=== PATIENT | female | born 1960 | race Caucasian/White ===

== ENCOUNTER → 2021-05-17 | Outpatient (CLI) | payer OTHER ==
[~2021-05-17] VITALS: Ht 157.5 cm; Wt 61.2 kg
[~2021-05-17] MED LIST: CANASA1000 MG RECTAL; ESTRADIOL 1 MG T1 M1 PO; FISH OIL 1,0001 EAC9 PO; PROVERA2.5 MG PO; VITAMIN D350 MC3 PO
--- NOTE | 2021-05-19 10:40 | P ---
[facility] [place] [place] [address] PROCEDURE REPORT Name: MARLON SOLORZANO Room #: REG Jose Keiry#: [id number] Admission: 05/17/21 Attend Phys: Mic Chaparro Discharge: Date of : 62 Report #: [id number] THIS REPORT FOR: cc: KECIA - No family physician/PCP FAM - No family physician/PCP Mic Santos MD ~ cc: Mark Joseph DATE OF SERVICE: 05/17/2021 PROCEDURE PERFORMED: Colonoscopy with biopsies. HISTORY OF PRESENT ILLNESS: The patient is a 60-year-old female with a history of ulcerative colitis diagnosed many years ago. Denies any symptoms. She has not been on any medications other than Canasa suppositories on an every other day basis. Again, denies any bright red blood per rectum, diarrhea, or abdominal pain. Last colonoscopy in [address] Sebastian was essentially normal. Biopsies did show mild chronic active colitis. Plan is for repeat colonoscopy. The patient is also with a family history of colon cancer in her mother. DESCRIPTION OF PROCEDURE: The risks and benefits of the procedure were explained to the patient, those risks including but not limited to bleeding, perforation and the risk of sedation. She understood these risks and gave informed consent. Sedation was given using propofol per anesthesia. Next, a digital rectal exam was initially performed, which was normal. Next, using a standard Olympus colonoscope, the scope was placed in the patient's anus and advanced under direct vision to the cecum. The overall prep was excellent. The cecum and ileocecal valve were normal in appearance. The ascending, transverse, descending and sigmoid colon were all normal. Random biopsies were obtained in each segment. The rectal mucosa was normal as well. On retroflexion, a single small internal hemorrhoid was noted. No evidence of bleeding. The scope was then withdrawn and the procedure terminated. The patient tolerated the procedure well. IMPRESSION: 1. Small internal hemorrhoids. 2. Otherwise, normal colonoscopy. No obvious colitis noted on exam today. RECOMMENDATIONS: 1. Await biopsy results. 2. Continue current regimen at this time. 3. Repeat colonoscopy in [address] [address] PROCEDURE REPORT Name: MARLON SOLORZANO MARCIO Room #: REG MISBAH Keiry#: [id number] Admission: 05/17/21 Attend Phys: Mic Chaparro Discharge: Date of : 62 Report #: [id number] Thank you for allowing me to participate in her care. <ELECTRONICALLY SIGNED> By: Mic Santos MD 05/19/21 1040 [id number] Mic Santos MD /nt
--- NOTE | 2021-05-19 17:07 | PATH ---
[facility] [place] [address] PATHOLOGY RPT PROCEDURE Name: MARLON ESCALERA Room #: REG [facility]..#: [id number] Admission: 05/17/21 Date of : 62 Discharge: Report #: [id number] Path Case #: [id number] [facility] Accession Number: [id number] . 01 Material submitted: . PART A: colon - ASCENDING COLON BIOPSY. Modifiers: ascending PART B: colon - TRANSVERSE COLON BIOPSY. Modifiers: transverse PART C: colon - DESCENDING COLON BIOPSY. Modifiers: descending PART D: sigmoid colon - SIGMOID COLON BIOPSY PART E: rectum - RECTAL BIOPSY . 01 Clinical history: . COLONOSCOPY ULCERATIVE COLITIS . 01 Diagnosis: A. Colonic mucosa "ascending colon biopsy": - No diagnostic features. - There is no evidence of acute cryptitis, granulomas, adenomatous change, or malignancy. . B. Colonic mucosa "transverse colon biopsy": - No diagnostic changes. - There is no evidence of acute cryptitis, granulomas, adenomatous change, or malignancy. . C. Colonic mucosa "descending colon biopsy": - No diagnostic changes. - There is no evidence of acute cryptitis, granulomas, adenomatous change, or malignancy. . D. Colonic mucosa "sigmoid colon biopsy": - No diagnostic changes. - There is no evidence of acute cryptitis, granulomas, adenomatous change, or malignancy. . E. Colonic mucosa "rectal colon biopsy": - No diagnostic changes. - There is no evidence of acute cryptitis, granulomas, adenomatous change, or malignancy. See comment. (SHA:mile; 05/19/2021) S 05/19/2021 1003 Local . 01 Comment: Clinical history of ulcerative colitis noted. ([facility]; 05/19/2021) . [address] [address] PATHOLOGY RPT PROCEDURE Name: MARLON ESCALERA MARCIO Room #: REG [facility] Keiry#: [id number] Admission: 05/17/21 Date of : 62 Discharge: Report #: [id number] Path Case #: [id number] Electronically signed: . Alberto Marsh MD, Pathologist NPI- [id number] . 01 Gross description: . A. The specimen is received in formalin, labeled "Marlon Escalera, ascending colon BX" and consists of multiple verduzco irregular tissue aggregating 0.7 x 0.6 x 0.1 cm which are submitted in toto in A1. . B. The specimen is received in formalin, labeled "Hopper, Marlon, transverse colon BX" and consists of multiple verduzco irregular tissues aggregating 0.8 x 0.5 x 0.2 cm which are submitted in toto in B1. . C. The specimen is received in formalin, labeled "Hopper, Marlon, descending colon BX" and consists of multiple verduzco irregular tissues aggregating 0.6 x 0.5 x 0.2 cm which are submitted in toto in C1. . D. The specimen is received in formalin, labeled "Hopper, Marlon, sigmoid colon BX" and consists of multiple verduzco irregular tissues aggregating 0.7 x 0.6 x 0.2 cm which are submitted in toto in D1. . E. The specimen is received in formalin, labeled "Hopper, Marlon, rectal BX" and consists of multiple verduzco irregular tissues aggregating 0.7 x 0.6 x 0.1 cm which are submitted in toto in E1.([facility]; 05/18/2021) DKA/DKA 05/19/2021 0959 Local . 01 Pathologist provided ICD-10: Z12.11, K51.80 . 01 CPT . 455472, 816389, 659860, 838880, [id number] Specimen Comment: A courtesy copy of this report has been sent to [phone] Specimen Comment: Report sent to Performed at: [facility] [address] [place] [address] [address], [place], [place] [id number] MD Alberto Marsh MD Phone: [phone]
== END | disposition home or self-care (01) ==
LOC: GI 07:58
PROVIDERS: ATTEND Specialist
DX: K52.9 Noninfective gastroenteritis and colitis, unspecified (principal); K64.8 Other hemorrhoids; Z80.0 Family history of malignant neoplasm of digestive organs; Z98.890 Other specified postprocedural states; Z79.899 Other long term (current) drug therapy
CPT/HCPCS: 62110; 62900